=== PATIENT | female | born 1975 | race Caucasian/White ===

== ENCOUNTER 2024-10-28 16:49 | Emergency (ER) | payer BC, SELFPAY ==
[2024-10-28 16:48] VITALS: BP 126/68; PULSE 60; RESP 17; O2SAT 98
--- NOTE | 2024-10-28 17:58 | ED_ITS ---
HPI - General Adult General Chief complaint: Dental/Oral Stated complaint: dental pain Source: patient Mode of arrival: ambulatory Limitations: no limitations History of Present Illness HPI narrative: 48-year-old white female complains of dental pain right upper and right lower molars for several weeks. Unable to get into her primary care providers in her dentist. Pain in right side of her face and right ear. Denies any other symptoms. No nausea or vomiting she says she has a hard time swallowing pills. Related Data Allergies Allergy/AdvReac Type Severity Reaction Status Date / Time amoxicillin Allergy Unknown Unknown Verified 10/28/24 17:00 azithromycin Allergy Unknown Unknown Verified 10/28/24 17:00 cephalexin (From Keflex) Allergy Unknown Unknown Verified 10/28/24 17:00 cortisone Allergy Unknown Unknown Verified 10/28/24 17:00 doxycycline Allergy Unknown Unknown Verified 10/28/24 17:00 erythromycin base Allergy Unknown Unknown Verified 10/28/24 17:00 magnesium Allergy Unknown Unknown Verified 10/28/24 17:00 montelukast (From Singulair) Allergy Unknown Unknown Verified 10/28/24 17:00 Penicillins Allergy Unknown Unknown Verified 10/28/24 17:00 promethazine (From Phenergan) Allergy Unknown Unknown Verified 10/28/24 17:00 tramadol Allergy Unknown Unknown Verified 10/28/24 17:00 Review of Systems Review of Systems: All systems reviewed & are unremarkable except as noted in HPI and below Exam Narrative: White female patient with no apparent distress.? Head normocephalic, atraumatic.? Eyes conjunctiva pink sclera nonicteric.? Extraocular movements are intact.? Ears externally normal.? TMs are normal. ?Oropharynx is clear with moist mucous membranes without exudates.? Right in teeth the back lower molars with tenderness on the right side lower molar and upper molar on the right side. No facial tenderness Neck is supple nontender no lymphadenopathy.? Back is nontender.? Lungs are clear.? Heart is regular rate and rhythm without murmurs gallops or rubs.? Skin is warm and dry without rashes or lesions.? Neurological patient is alert and oriented x4.? Motor and sensory grossly intact.? Gait is normal. Course Vital Signs Vital signs: Vital Signs Pulse Rate 60 10/28/24 16:48 Respiratory Rate 17 10/28/24 16:48 Blood Pressure 126/68 10/28/24 16:48 Pulse Oximetry 98 10/28/24 16:48 Oxygen Delivery Room Air 10/28/24 16:48 Pulse Rate 60 10/28/24 16:48 Respiratory Rate 17 10/28/24 16:48 Blood Pressure 126/68 10/28/24 16:48 Pulse Oximetry 98 10/28/24 16:48 Oxygen Delivery Room Air 10/28/24 16:48 Medical Decision Making MDM Narrative Medical decision making narrative: Patient placed in room: 3 ? History and physical was performed. Independent Historian: patient External Source Review: Differential Dx includes but not limited to: dental abscess dental caries Medications were Reviewed: Medications given: Toradol 30 IM Independently Interpreted by me: Shared decision Making: evaluation discussed all questions were asked and answered patient agreed with plan. Clindamycin 150 4 times a day Tylenol ibuprofen for pain. Vital Signs Vital Signs: Vital Signs Pulse Rate 60 10/28/24 16:48 Respiratory Rate 17 10/28/24 16:48 Blood Pressure 126/68 10/28/24 16:48 Pulse Oximetry 98 10/28/24 16:48 Oxygen Delivery Room Air 10/28/24 16:48 Pulse Rate 60 10/28/24 16:48 Respiratory Rate 17 10/28/24 16:48 Blood Pressure 126/68 10/28/24 16:48 Pulse Oximetry 98 10/28/24 16:48 Oxygen Delivery Room Air 10/28/24 16:48 Discharge Plan Discharge Clinical Impression: Toothache Patient Disposition: Home, Self-Care Condition: Stable Instructions: Antibiotic Form, Toothache (ED) Additional Instructions: ibuprofen 400 mg 3 times a day. Tylenol not more than 4000 mg per day as needed for pain. Follow-up with your primary care provider and Dentist. Clindamycin 150 mg every 6 hours 4 times a day for 10 days. Return if you get worse or develops any new symptoms. Patient Language: Indonesian Prescriptions: New clindamycin HCl 150 mg capsule 150 mg PO Q6H 10 Days Qty: 40 0RF Follow-up/Referrals: Nay,Kenedy [Other] Stand Alone Forms: Work/School Release IP
[2024-10-28] MEDS: KETOROLAC 30 MG/ML VIAL (*BKC) IM (18:14)
[2024-10-28 18:33] VITALS: BP 115/81; PULSE 58; RESP 16; TEMP 36.3; O2SAT 100
== END 2024-10-28 18:33 | disposition home or self-care (01) ==
PROVIDERS: Emergency Provider Emergency Medicine
DX: K08.89 Other specified disorders of teeth and supporting structures (principal)
CPT/HCPCS: 96372; 99283; J1885

== ENCOUNTER 2025-02-03 14:49 | Emergency (ER) | payer BC, SELFPAY ==
--- NOTE | ~2025-02-03 | CT_ITS ---
EXAMINATION: CT cervical spine wo con DATE: 02/03/2025 15:51 INDICATION: Right-sided cervical pain post injury TECHNIQUE: Computed tomography (CT) of the cervical spine was performed without intravenous contrast. Automated exposure control and iterative reconstruction technique were employed. The dose-length pro duct was 323.89 mGy-cm. COMPARISON: None FINDINGS: Focal mild reversal of the normal cervical lordosis which could be positional or due to muscle spasm. No spondylolisthesis or facet subluxation. Mild osteoarthritis at the atlantoaxial articulation. Rush tebral body and disc heights are normal. Mild disc bulge at C3-C4 resulting in mild central canal ibeth nosis at this level. There is multilevel mild cervical facet and uncovertebral osteoarthritis. There is moderate facet osteoarthritis on the right at C2-C3 and bilaterally at C7-T1 with mild facet osteo arthritis at many of the remaining cervical levels. No neural foraminal stenosis. Cervical soft tissu es are unremarkable. IMPRESSION: 1. Mild reversal of the normal cervical lordosis which could be positional or due to muscle spasm. No other acute osseous abnormality. 2. Minimal cervical spondylosis. Reviewed, dictated and finalized at location A. IMPRESSION: 1. Mild reversal of the normal cervical lordosis which could be positional or d ue to muscle spasm. No other acute osseous abnormality. 2. Minimal cervical spondylosis.
--- NOTE | ~2025-02-03 | CT_ITS ---
EXAMINATION: CT thoracic spine wo con DATE: 02/03/2025 15:51 INDICATION: Right-sided back pain post injury TECHNIQUE: Computed tomography (CT) of the thoracic spine was performed without intravenous contrast. Automated exposure control and iterative reconstruction technique were employed. The dose-length pro duct was 1368.49 mGy-cm. COMPARISON: None FINDINGS: Alignment is normal. Vertebral body heights are normal. No fractures. Multilevel mild disc height los s with small degenerative endplate osteophytes from T3-T4 through T10-T11. No evident central canal s tenosis. Severe facet osteoarthritis on the left at T9-T10 and T10-T11. Mild facet osteoarthritis the majority the remaining levels throughout the thoracic spine. No thoracic neural foraminal stenosis. 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 Paravertebral soft tissues are otherwise unremarkable. Respiratory motion mild atelecta sis at the visualized portions of the bilateral lung bases. Thoracic aorta is normal in caliber. IMPRESSION: 1. Mild thoracic spondylosis. No acute osseous abnormality. Reviewed, dictated and finalized at location A.
[2025-02-03 14:50] VITALS: BP 120/65; PULSE 65; RESP 16; TEMP 36.3; O2SAT 99
--- NOTE | 2025-02-03 14:50 | ED.BACK ---
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 She has pain in the cervical neck region to the right of her neck. The pain shoots down her back to the upper thoracic region. It is a shooting pain. It is a sharp pain. No head injury per se. Only neck injury. No LOC. MD elicited complaint: back pain ( right neck and thoracic spine) and back injury ( right neck and thoracic spine) Pertinent past history: recent trauma Onset (ago): hour(s) ( 2) Timing: constant Severity: moderate Pain scale (0-10): 5 Similar Symptoms Previously: No Quality: sharp and tingling Location: thoracic spine ( cervical spine right neck) Radiation: neck ( thoracic spine) Exacerbating factors: movement Relieving factors: immobilization Context: other ( patient has right neck and cervical and thoracic pain after a box fell on her neck area in the past few hours at work) Associated symptoms: denies other symptoms Treatments prior to arrival: other ( none) Work related injury: Yes Related Data Allergies Allergy/AdvReac Type Severity Reaction Status Date / Time amoxicillin Allergy Unknown Unknown Verified 02/03/25 14:54 azithromycin Allergy Unknown Unknown Verified 02/03/25 14:54 cephalexin (From Keflex) Allergy Unknown Unknown Verified 02/03/25 14:54 cortisone Allergy Unknown Unknown Verified 02/03/25 14:54 doxycycline Allergy Unknown Unknown Verified 02/03/25 14:54 erythromycin base Allergy Unknown Unknown Verified 02/03/25 14:54 magnesium Allergy Unknown Unknown Verified 02/03/25 14:54 montelukast (From Singulair) Allergy Unknown Unknown Verified 02/03/25 14:54 Penicillins Allergy Unknown Unknown Verified 02/03/25 14:54 promethazine (From Phenergan) Allergy Unknown Unknown Verified 02/03/25 14:54 tramadol Allergy Unknown Unknown Verified 02/03/25 14:54 Review of Systems Review of Systems: All systems reviewed & are unremarkable except as noted in HPI and below Constitutional: Constitutional: Reports no additional constitutional complaints Eyes: Eyes: Reports no additional eye complaints ENT: Reports system reviewed and no additional complaints, except as documented Cardiovascular: Cardiovascular: Reports no additional cardiovascular complaints Respiratory: Respiratory: Reports no additional respiratory complaints Gastrointestinal: Gastrointestinal: Reports no additional gastrointestinal complaints Genitourinary: Genitourinary: Reports no additional female genitourinary complaints Musculoskeletal: Musculoskeletal: Reports no additional musculoskeletal complaints Integumentary/Breasts: Skin/Breast: Reports system reviewed and no additional complaints, except as docu Neurologic: Reports system reviewed and no additional complaints, except as documented Psychiatric: Psychiatric: Reports no additional psychiatric complaints Endocrine: Endocrine: Reports no additional endocrine complaints Hematologic/Lymphatic: Hematologic/Lymphatic: Reports no additional hematologic/lymphatic complaints Allergic/Immunologic: Allergic/Immunologic: Reports no additional allergic/immunologic complaints Exam Const: General: healthy appearing Nutritional Appearance: well nourished Orientation/consciousness: patient oriented x3 HENMT: Head: normal to inspection Ears: external ears normal Face/Nose/Sinus: Normal external nose present Eyes: Conjunctivae: conjunctivae normal Pupils: Equal, round and reactive pupils present EOM: EOMs intact bilaterally Neck: Neck: normal visual inspection Chest: Chest palpation & inspection: normal inspection of the chest Resp: Effort & Inspection: normal respiratory effort and not labored Auscultation: clear to auscultation bilaterally and no crackles Cardio: Rate: regular rate Rhythm: regular rhythm Heart sounds: no murmurs GI: Inspection: non-distended GI Palp: Yes Soft to palpation and No Tenderness to palpation present (GI) Auscultation: normal bowel sounds : General: Yes bladder normal to palpation Back/Spine/Pelvis: Back: no CVA tenderness Other: tender cervical spine more so to the right of the neck and down to the upper thoracic spine midline and to the right of the spine and in the paraspinal muscle area Skin: General skin exam: normal color Rashes: no rashes Wounds: no wounds Neuro: General: patient oriented x3 Cranial nerves: Yes Nystagmus not present Speech: normal speech Gait exam (Neuro): Normal gait present Other: no focal neurological deficits Extrem: General: normal to inspection Psych: Mental Status: mental status grossly normal Affect: normal affect Attitude: cooperative Course Vital Signs Vital signs: Vital Signs Temperature 36.3 C L 02/03/25 14:50 Pulse Rate 65 02/03/25 14:50 Respiratory Rate 16 02/03/25 14:50 Blood Pressure 120/65 02/03/25 14:50 Pulse Oximetry 99 02/03/25 14:50 Temperature 36.3 C L 02/03/25 14:50 Pulse Rate 65 02/03/25 14:50 Respiratory Rate 16 02/03/25 14:50 Blood Pressure 120/65 02/03/25 14:50 Pulse Oximetry 99 02/03/25 14:50 MDM - Back Pain/Injury MDM Narrative Medical decision making narrative: patient is a 49-year-old female with a right neck injury and upper back injury at work a few hours ago. A box fell on her neck. No head injury. We will get CT scans of the area of the cervical spine and thoracic spine. We will give her Toradol. Imaging Data Attestation: I personally reviewed and interpreted this imaging study as follows: Radiologist's impression: CT scan of the cervical spine shows muscle spasms but no acute other findings CT scan of the thoracic spine is negative for acute findings Discharge Plan Discharge Clinical Impression: Acute cervical myofascial strain, Acute thoracic myofascial strain Patient Disposition: Home, Self-Care Condition: Stable Instructions: Cervical Strain (DC), Thoracic Back Strain (ED) Patient Language: Saudi Arabian Prescriptions: New orphenadrine citrate 100 mg tablet extended release 100 mg PO BID PRN (Reason: pain) Qty: 20 0RF No Action clindamycin HCl 150 mg capsule 150 mg PO Q6H 10 Days Qty: 40 0RF Follow-up/Referrals: UNKNOWN,DOCTOR [Non-Staff] - Time of Disposition: 16:23
--- OUTSIDE RECORDS SUMMARY | 2025-02-03 14:51 | XMS_ITS | Encounter Summary ---
Author Organization [facility] Address [address] [place] [address] Care Team Providers Care Cigarette Making Machine Catcher Name Role Phone None, Provider Primary Care Provider Unavaila Mil Kilgore MD Unavailable Unavailbeba e José Miguel Blackwell MD Primary Care Provider [phone] Marcell Calderon MD Unavailable Unavailable Francisco Luz MD Unavailable [phone] Katie Corbin NP Unavailable [phone] Donald Gupta PA-C Primary Care Provider [phone] Encounter Details Date Type Department Care Team (Late st Contact Info) Description 12/30/[address] [facility] Conversion [address] [place], [place] [id number] , Generic Conversion, Social History Tobacco Use Types Packs/Day Years Used Date Smoking Tobacco: Never Assessed Comments Unknown Sex and Gender Information Value Date Recorded Sex Assigned at Not on file Legal Sex Female 10:30 PM CDT Gender Identity Not on file Sexual Orientation Not on file documented as of this encounter Plan of Treatment Not on file documented as of this encounter Visit Diagnoses Not on filedocumented in this encounter Care Teams Cigarette Making Machine Catcher Relationship Specialty Start Date End Date None, ProviderMD PCP - General 02/18/17 02/19/17 José Miguel Blackwell MD PCP - General FAMILY PRACTICE 02/20/17 12/05/19 Donald Gupta PA-C [address] [place] [address] [place] [address] PCP - General PHYSICIAN IMAGER 12/06/19 Mil Daniel MD [place] Senior Construction Project Manager CARDIOVASCULAR DISEASE 02/18/17 Marcell Calderon MD Senior Construction Project Manager CLINICAL CARDIAC ELECTROPHYSIOLOGY 06/22/17 Francisco Luz MD [address] [place] [phone] CARDIOVASCULAR DISEASE 12/28/17 Katie Corbin NP [address] [place] [address] NURSE PRACTITIONER 04/12/19 2 documented as of this encounter
--- OUTSIDE RECORDS SUMMARY | 2025-02-03 14:51 | XMS_ITS | Encounter Summary ---
Author Organization [facility] Address [address] [place] [address] Care Team Providers Care Kitchen Designer Name Role Phone Mil Daniel MD Unavailable UnavailJosé Miguel Palacio MD Primary Care Provider [phone] Marcell Calderon MD Unavailable Unavailable rFancisco Luz MD Unavailable [phone] Katie Corbin NP Unavailable [phone] Donald Gupta PA-C Primary Care Provider [phone] Encounter Details Date Type Department Care Team (Late st Contact Info) Description 02/20/2017 Abstract [facility] [address] [place] [id number] Mil Daniel MD Social History Tobacco Use Types Packs/Day Years Used Date Smoking Tobacco: Never Smokeless Tobacco: Never Tobacco Cessation:Counseling Given: Not Answered Alcohol Use Standard Drinks/Week Comments No 0 (1 standard drink = 0.6 oz pur e alcohol) Comments Unknown Sex and Gender Information Value Date Recorded Sex Assigned at Not on file Legal Sex Female 10:30 PM CDT Gender Identity Not on file Sexual Orientation Not on file Occupation Industry Job Start Date Job End Date 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 [employer] Not on file Not on ellis e Not on file documented as of this encounter Plan of Treatment Not on file documented as of this encounter Visit Diagnoses Not on filedocumented in this encounter Care Teams Kitchen Designer Relationship Specialty Start Date End Date José Miguel Blackwell MD PCP - General FAMILY PRACTICE 02/20/17 12/05/19 Donald Gupta PA-C [address] [place] [address] [place] [address] PCP - General PHYSICIAN DIRECTOR OF STUDENT AID 12/06/19 Mil Daniel MD [place] Product Technology Scientist CARDIOVASCULAR DISEASE 02/18/17 Marcell Calderon MD Product Technology Scientist CLINICAL CARDIAC ELECTROPHYSIOLOGY 06/22/17 Francisco Luz MD [address] [place] [phone] CARDIOVASCULAR DISEASE 12/28/17 Katie Corbin NP [address] [place] [address] NURSE PRACTITIONER 04/12/19 12/09/20 documented as of this encounter
--- OUTSIDE RECORDS SUMMARY | 2025-02-03 14:51 | XMS_ITS | Encounter Summary ---
Author Organization [facility] Address [address] [place] [address] Care Team Providers Care Industrial Yard Brake Coupler Name Role Phone None, Provider Primary Care Provider Unavaila Mil Kilgore MD Unavailable Unavailbeba e José Miguel Blackwell MD Primary Care Provider [phone] Marcell Calderon MD Unavailable Unavailable Francisco Luz MD Unavailable [phone] Katie Corbin NP Unavailable [phone] Donald Gupta PA-C Primary Care Provider [phone] Encounter Details Date Type Department Care Team (Late st Contact Info) Description 01/29/[address] [facility] Conversion [address] [place], [place] [address] , Generic Conversion, Social History Tobacco Use [...] on filedocumented in this encounter Care Teams Industrial Yard Brake Coupler Relationship Specialty Start Date End Date None, ProviderMD PCP - General 02/18/17 02/19/17 José Miguel Blackwell MD PCP - General FAMILY PRACTICE 02/20/17 12/05/19 Donald Gupta PA-C [address] [place] [address] [place] [address] PCP - General PHYSICIAN PROCESS MACHINE OPERATOR 12/06/19 Mil Daniel MD [place] Mat Machine Tender CARDIOVASCULAR DISEASE 02/18/17 Marcell Calderon MD Mat Machine Tender CLINICAL CARDIAC ELECTROPHYSIOLOGY 06/22/17 Francisco Luz MD [address] [place] [phone] CARDIOVASCULAR DISEASE 12/28/17 Katie Corbin NP [address] [place] [address] NURSE PRACTITIONER 04/12/19 2 documented as of this encounter
--- OUTSIDE RECORDS SUMMARY | 2025-02-03 14:51 | XMS_ITS | Encounter Summary ---
Author Organization [facility] Address [address] [place] [address] Care Team Providers Care General Medical Practitioner Name Role Phone Mil Daniel MD Unavailable UnavailJosé Miguel Palacio MD Primary Care Provider [phone] Marcell Calderon MD Unavailable Unavailable Francisco Luz MD Unavailable [phone] Katie Corbin NP Unavailable [phone] Donald Gupta PA-C Primary Care Provider [phone] Encounter Details Date Type Department Care Team (Late st Contact Info) Description 04/13/2019 Abstract [facility] [address] [place] [address] Abstract, Doc [facility] Social History Tobacco Use Types Packs/Day Years Used Date Smoking Tobacco: Never Smokeless Tobacco: Never Alcohol Use Standard Drinks/Week Comments No 0 (1 standard drink = 0.6 oz pur e alcohol) Comments Unknown Sex and Gender Information Value Date Recorded Sex Assigned at Not on file Legal Sex Female 10:30 PM CDT Gender Identity Not on file Sexual Orientation Not on file Occupation Industry Job Start Date 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 End Date 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 Not on file Not on file documented as of this encounter Plan of Treatment Not on file documented as of this encounter Visit Diagnoses Not on filedocumented in this encounter Care Teams General Medical Practitioner Relationship Specialty Start Date End Date José Miguel Blackwell MD PCP - General FAMILY PRACTICE 02/20/17 12/05/19 Donald Gupta PA-C [address] [place] [address] PCP - General PHYSICIAN INVESTMENT BANKING MANAGER 12/06/19 Mil Daniel MD [place] Pyrometer Operator CARDIOVASCULAR DISEASE 02/18/17 Marcell Calderon MD Pyrometer Operator CLINICAL CARDIAC ELECTROPHYSIOLOGY 06/22/17 Francisco Luz MD [address] [place] [address] CARDIOVASCULAR DISEASE 12/28/17 Katie Corbin NP [address] [place] [address] NURSE PRACTITIONER 04/12/19 12/09/20 documented as of this encounter
--- OUTSIDE RECORDS SUMMARY | 2025-02-03 14:51 | XMS_ITS | Clinical Summary ---
Author Organization [facility] Address [address] [place] [address] Care Team Providers Care Tub Wash Operator Name Role Phone Mil Daniel MD Unavailable UnavailMarcell Dahl MD Unavailable Unavailable Francisco Luz MD Unavailable Donald Gupta PA-C Primary Care Provider [phone] Allergies Active Allergy Reactions Criticality Noted Date Comments Amoxicillin Anaphylaxis High 02/20/2017 Azithromycin Anaphylaxis High 02/20/2017 Cortisone Other (see comment) 02/20/2017 swelling Doxycycline Anaphylaxis High 02/20/2017 Erythromycin Anaphylaxis High 02/20/2017 Fludrocortisone Other (see comment) 01/12/2020 At high dose peripheral edema Levothyroxine GI Upset 03/03/2023 Magnesium Sulfate Other (see comment) 0 Blindness Penicillins Anaphylaxis High 02/20/2017 Prednisone Anaphylaxis High 03/03/2023 Promethazine Anaphylaxis High 02/20/2017 Medications EPINEPHrine 0.3 MG/0.3ML injection Inject 0.3 mLs (0.3 mg total) into the muscle as needed for Anaphylaxis . Active albuterol sulfate HFA 108 (90 Base) MCG/ACT inhaler Inhale 1 puff into the lungs every 6 (six) hours as needed. 03/23/2020 Active thyroid (ARMOUR) 30 MG OR tablet Take 1 tablet (30 mg total) by mouth daily. Active Active Problems Problem Noted Date Diagnosed Date PAC (premature atrial contraction) 12/27/2020 Chest pain 04/22/2019 Postural dizziness with near syncope 11/30/2018 Family history of heart disease 06/29/2018 LOC (loss of consciousness) ([facility]) Hypothyroidism, acquired 05/02/2015 Overview (01/12/2020): Date Onset: 05/02/2015 Metabolic syndrome 05/02/2015 Overview (01/12/2020): Date Onset: 05/02/2015 Date Onset: 05/02/2015 Polycystic ovaries 05/02/2015 Overview (01/12/2020): Date Onset: 05/02/2015 Vitamin D deficiency 05/02/2015 Overview (01/12/2020): Date Onset: 05/02/2015 Dysmenorrhea 04/18/2015 Overview (01/12/2020): Date Onset: 04/18/2015 Date Onset: 04/18/2015 Dyspareunia 04/18/2015 Overview (01/12/2020): Date Onset: 04/18/2015 Irregular menses 04/18/2015 Overview (01/12/2020): Date Onset: 04/18/2015 Menorrhagia 04/18/2015 Overview (01/12/2020): Date Onset: 04/18/2015 Metrorrhagia 04/18/2015 Overview (01/12/2020): Date Onset: 04/18/2015 Obesity 04/18/2015 Overview (01/12/2020): Date Onset: 04/18/2015 Premenstrual dysphoric disorder 04/18/2015 Overview (01/12/2020): Date Onset: 04/18/2015 Orthostatic hypotension Syncope Sinus bradycardia Dizziness Family History Medical History Relation Comments Colon Cancer Father Heart Attack Father Heart Disease Father AICD Accidental Mother motorcycle acci dent Relation Status Comments Brother Alive Father Alive Maternal Grandfather Maternal Grandmother Mother (Age 61) Paternal Grandfather Paternal Grandmother Sister Alive Social History Tobacco Use Types Packs/Day Years [...] Job Start Date Job End Date 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 [employer] Not 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 Not on ellis e Not on file Last Filed Vital Signs Vital Sign Reading Time Taken Comments Blood Pressure 123/84 06/18/2023 12:31 PM CDT Pulse 76 03/03/2023 9:56 AM CDT regul ar Temperature - - Respiratory Rate 16 06/18/2023 12:27 PM CDT Oxygen Saturation 99% 06/18/2023 12:27 PM CDT Inhaled Oxygen Concentration - - Weight 95.3 kg (210 lb) 06/18/2023 12:27 PM CDT Height 165.1 cm (5' 5 ) 06/18/2023 12:27 PM CDT Body Mass Index 34.95 06/18/2023 12:27 PM CDT Plan of Treatment Health Maintenance Due Date Last Done Comments Colorectal Cancer Screening Colonoscopy (10 Years) 1974 Annual Physical 1977 Hepatitis C 1992 DTaP, Tdap and Td Vaccines ( 1 - Tdap) 1993 04/06/1980 Hepatitis B Vaccines (1 of 3 - 19+ 3-dose series) 1993 Cervical Cancer Screening Pa p with HPV Testing (Age 30 to 64) Every 5 Years 2004 Mammogram Screening 2014 Cervical Cancer Screening Pa p Smear (Age 30 to 64) Every 3 Years 04/18/2018 04/18/2015 Cervical Cancer Screening with HPV 04/18/2018 COVID-19 Vaccine ( - 2023-2 5 season) 2024 Zoster Vaccines (1 of 2) 2024 Meningococcal B Vaccine Aged Out No l onger eligible based on patient's age to complete this topic Meningococcal Vaccine Aged Out No rivera pepper eligible based on patient's age to complete this topic Pneumococcal Vaccine: Pediat rics (0 to 5 Years) and At-Risk Patients (6 to 64 Years) Aged Out No longer eligi ble based on patient's age to complete this topic RSV Immunizations Under 20 Months Aged Out No longer eligible based on patient's age to complete this topic Procedures Procedure Name Priority Date/Time Associated Diagnosis Comments THINPREP IMAGING PAP REFLEX HPV MRNA E6/E7 Routine 04/18/2015 12:28 PM CDT from Last 3 Months or Most Recently Relevant to Health Maintenance Results * THINPREP IMAGING PAP REFLEX HPV MRNA E6/E7 (04/18/2015 12:28 PM CDT) REFLEX ADDED no [facility] P TO EPIC CONVERSION Comment: THIS TEST WAS PERFORMED AT [facility] [address], [place] [address] 04/18/2015 12:2 8 PM CDT 04/18/2015 12:28 PM CDT Narrative [facility] TO EPIC CONVERSION - 04/24/2015 11:05 AM CDT This lab was migrated from [facility] and may be missing annotations or result text, please check the Media tab for the most complete results. Juan Manuel Warren MD PATHOLOGY/CYTOLOGY ORDER PATRICIA Final Result [facility] TO EPIC CONVERSION from Last 3 Months or Most Recently Relevant to Health Maintenance Insurance RANGEL Care Teams Tub Wash Operator Relationship Specialty Start Date End Date Donald Gupta PA-C [address] [place] [place] [address] PCP - General PHYSICIAN DRAPERY INSPECTOR 12/06/19 Mil Daniel MD [place] Dishwashing Machine Repairer CARDIOVASCULAR DISEASE 02/18/17 Marcell Calderon MD [place] Dishwashing Machine Repairer CLINICAL CARDIAC ELECTROPHYSIOLOGY 06/22/17 Francisco Luz MD [address] [place] [address] CARDIOVASCULAR DISEASE 12/28/17
--- OUTSIDE RECORDS SUMMARY | 2025-02-03 14:51 | XMS_ITS | Encounter Summary ---
Author Organization [facility] Address [address] [place] [address] Care Team Providers Care Accreditation Coordinator Name Role Phone None, Provider Primary Care Provider Unavaila Mil Kilgore MD Unavailable Unavailbeba e José Miguel Blackwell MD Primary Care Provider [phone] Marcell Calderon MD Unavailable Unavailable Francisco Luz MD Unavailable [phone] Katie Cobrin NP Unavailable [phone] Donald Gupta PA-C Primary Care Provider [phone] Encounter Details Date Type Department Care Team (Late st Contact Info) Description 01/26/[address] [facility] Conversion [address] [place], [place] [address] , Generic Conversion, Social History Tobacco Use [...] on filedocumented in this encounter Care Teams Accreditation Coordinator Relationship Specialty Start Date End Date None, ProviderMD PCP - General 02/18/17 02/19/17 José Miguel Blackwell MD PCP - General FAMILY PRACTICE 02/20/17 12/05/19 Donald Gupta PA-C [address] [place] [address] [place] [address] PCP - General PHYSICIAN PAROLE BOARD MEMBER 12/06/19 Mil Daniel MD [place] [employer] Engineering Teacher CARDIOVASCULAR DISEASE 02/18/17 Marcell Calderon MD Plastics Engineering Teacher CLINICAL CARDIAC ELECTROPHYSIOLOGY 06/22/17 Francisco Luz MD [address] [place] [address] CARDIOVASCULAR DISEASE 12/28/17 Katie Corbin NP [address] [place] [address] NURSE PRACTITIONER 04/12/19 2 documented as of this encounter
[2025-02-03] MEDS: KETOROLAC (*BKC) 60 MG/2 ML VIAL IM (15:11)
--- OUTSIDE RECORDS SUMMARY | 2025-02-03 15:35 | XMS_ITS | Encounter Summary ---
Author Organization [facility] Address [address] [place] [address] Care Team Providers Care Cured Meats Supervisor Name Role Phone None, Provider Primary Care Provider Unavaila Mil Kilgore MD Unavailable Unavailbeba e José Miguel Blackwell MD Primary Care Provider [phone] Marcell Calderon MD Unavailable Unavailable Francisco Luz MD Unavailable [phone] Katie Corbin NP Unavailable [phone] Donald Gupta PA-C Primary Care Provider [phone] Encounter Details Date Type Department Care Team (Late st Contact Info) Description 12/30/[address] [facility] Conversion [address] [place], [place] [address] , Generic Conversion, Social History Tobacco Use [...] on filedocumented in this encounter Care Teams Cured Meats Supervisor Relationship Specialty Start Date End Date None, ProviderMD PCP - General 02/18/17 02/19/17 José Miguel Blackwell MD PCP - General FAMILY PRACTICE 02/20/17 12/05/19 Donald Gupta PA-C [address] [place] [address] [place] [address] PCP - General PHYSICIAN RAYON WINDER 12/06/19 Mil Daniel MD [place] Life Insurance Specialist CARDIOVASCULAR DISEASE 02/18/17 Marcell Calderon MD Life Insurance Specialist CLINICAL CARDIAC ELECTROPHYSIOLOGY 06/22/17 Francisco Luz MD [address] [place] [address] CARDIOVASCULAR DISEASE 12/28/17 Katie Corbin NP [address] [place] [address] NURSE PRACTITIONER 04/12/19 2 documented as of this encounter
--- OUTSIDE RECORDS SUMMARY | 2025-02-03 15:35 | XMS_ITS | Encounter Summary ---
Author Organization [facility] Address [address] [place] [address] Care Team Providers Care Toy Trains And Accessories Salesperson Name Role Phone None, Provider Primary Care Provider Unavaila Mil Kilgore MD Unavailable Unavailbeba e José Miguel Blackwell MD Primary Care Provider [phone] Marcell Calderon MD Unavailable Unavailable Francisco Luz MD Unavailable [phone] Katie Corbin NP Unavailable [phone] Donald Gupta PA-C Primary Care Provider [phone] Encounter Details Date Type Department Care Team (Late st Contact Info) Description 01/26/[address] [facility] Conversion [address] [place], [place] [address] , Generic Conversion, Social History Tobacco Use [...] on filedocumented in this encounter Care Teams Toy Trains And Accessories Salesperson Relationship Specialty Start Date End Date None, ProviderMD PCP - General 02/18/17 02/19/17 José Miguel Blackwell MD PCP - General FAMILY PRACTICE 02/20/17 12/05/19 Donald Gupta PA-C [address] [place] [address] [place] [address] PCP - General PHYSICIAN TANNING CONSULTANT 12/06/19 Mil Daniel MD [place] Webbing Tacker CARDIOVASCULAR DISEASE 02/18/17 Marcell Calderon MD Webbing Tacker CLINICAL CARDIAC ELECTROPHYSIOLOGY 06/22/17 Francisco Luz MD [address] [place] [address] CARDIOVASCULAR DISEASE 12/28/17 Katie Corbin NP [address] [place] [address] NURSE PRACTITIONER 04/12/19 2 documented as of this encounter
--- OUTSIDE RECORDS SUMMARY | 2025-02-03 15:35 | XMS_ITS | Encounter Summary ---
Author Organization [facility] Address [address] [place] [address] Care Team Providers Care It Architect Name Role Phone None, Provider Primary Care Provider Unavaila Mil Kilgore MD Unavailable Unavailbeba e José Miguel Blackwell MD Primary Care Provider [phone] Marcell Calderon MD Unavailable Unavailable Francisco Luz MD Unavailable [phone] Katie Corbin NP Unavailable [phone] Donald Gupta PA-C Primary Care Provider [phone] Encounter Details Date Type Department Care Team (Late st Contact Info) Description 01/29/[address] [facility] Conversion [address] [place], [place] [address] , Generic Conversion, Social History Tobacco Use [...] on filedocumented in this encounter Care Teams It Architect Relationship Specialty Start Date End Date None, ProviderMD PCP - General 02/18/17 02/19/17 José Miguel Blackwell MD PCP - General FAMILY PRACTICE 02/20/17 12/05/19 Donald Gupta PA-C [address] [place] [address] [place] [address] PCP - General PHYSICIAN TELE RN 12/06/19 Mil Daniel MD [place] Code Enforcement Supervisor CARDIOVASCULAR DISEASE 02/18/17 Marcell Calderon MD Code Enforcement Supervisor CLINICAL CARDIAC ELECTROPHYSIOLOGY 06/22/17 Francisco Luz MD [address] [place] [address] CARDIOVASCULAR DISEASE 12/28/17 Katie Corbin NP [address] [place] [address] NURSE PRACTITIONER 04/12/19 2 documented as of this encounter
--- OUTSIDE RECORDS SUMMARY | 2025-02-03 15:35 | XMS_ITS | Encounter Summary ---
Author Organization [facility] Address [address] [place] [address] Care Team Providers Care Junior Loan Processor Name Role Phone Mil Daniel MD Unavailable UnavailJosé Miguel Palacio MD Primary Care Provider [phone] Marcell Calderon MD Unavailable Unavailable Francisco Luz MD Unavailable [phone] Katie Corbin NP Unavailable [phone] Donald Gupta PA-C Primary Care Provider [phone] Encounter Details Date Type Department Care Team (Late st Contact Info) Description 02/20/2017 Abstract [facility] [address] [place] [phone] Mil Daniel MD Social History Tobacco Use [...] Job 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 Not on ellis e Not on file documented as of this encounter Plan of Treatment Not on file documented as of this encounter Visit Diagnoses Not on filedocumented in this encounter Care Teams Junior Loan Processor Relationship Specialty Start Date End Date José Miguel Blackwell MD PCP - General FAMILY PRACTICE 02/20/17 12/05/19 Donald Gupta PA-C [address] [place] [address] [place] [address] PCP - General PHYSICIAN CORE CARRIER 12/06/19 Mil Daniel MD [place] Adjunct Philosophy Faculty CARDIOVASCULAR DISEASE 02/18/17 Marcell Calderon MD Adjunct Philosophy Faculty CLINICAL CARDIAC ELECTROPHYSIOLOGY 06/22/17 Francisco Luz MD [address] [place] [address] CARDIOVASCULAR DISEASE 12/28/17 Katie Corbin NP [address] [place] [address] NURSE PRACTITIONER 04/12/19 12/09/20 documented as of this encounter
--- OUTSIDE RECORDS SUMMARY | 2025-02-03 15:35 | XMS_ITS | Encounter Summary ---
Author Organization [facility] Address [address] [place] [address] Care Team Providers Care Cloud Consultant Name Role Phone Mil Daniel MD Unavailable UnavailJosé Miguel Palacio MD Primary Care Provider [phone] Marcell Calderon MD Unavailable Unavailable Francisco Luz MD Unavailable [phone] Katie Corbin NP Unavailable [phone] Donald Gupta PA-C Primary Care Provider [phone] Encounter Details Date Type Department Care Team (Late st Contact Info) Description 04/13/2019 Abstract [facility] [address] [place] [address] Abstract, Doc [facility] Social History Tobacco Use [...] 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 Not on file Not on file documented as of this encounter Plan of Treatment Not on file documented as of this encounter Visit Diagnoses Not on filedocumented in this encounter Care Teams Cloud Consultant Relationship Specialty Start Date End Date José Miguel Blackwell MD PCP - General FAMILY PRACTICE 02/20/17 12/05/19 Donald Gupta PA-C [address] [place] [address] PCP - General PHYSICIAN CAREER DEVELOPMENT CONSULTANT 12/06/19 Mil Daniel MD [place] [employer] CARDIOVASCULAR DISEASE 02/18/17 Marcell Calderon MD Refrigerator Crater CLINICAL CARDIAC ELECTROPHYSIOLOGY 06/22/17 Francisco Luz MD [address] [place] [address] CARDIOVASCULAR DISEASE 12/28/17 Katie Corbin NP [address] [place] [address] NURSE PRACTITIONER 04/12/19 12/09/20 documented as of this encounter
--- OUTSIDE RECORDS SUMMARY | 2025-02-03 15:35 | XMS_ITS | Clinical Summary ---
Author Organization [facility] Address [address] [place] [address] Care Team Providers Care Tanning Consultant Name Role Phone Mil Daniel MD Unavailable UnavailMarcell Dahl MD Unavailable Unavailable Francisco Luz MD Unavailable [phone] Donald Gupta PA-C Primary Care Provider [phone] Allergies Active Allergy Reactions Criticality Noted Date [...] heart disease 06/29/2018 LOC (loss of consciousness) ([facility]) Hypothyroidism, acquired 05/02/2015 Overview (01/12/2020): Date Onset: [...] Job Start Date Job End Date 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 Juan Manuel Warren MD PATHOLOGY/CYTOLOGY ORDER PATRICIA Final Result [facility] TO EPIC CONVERSION from Last 3 Months or Most Recently Relevant to Health Maintenance Insurance RANGEL Care Teams Tanning Consultant Relationship Specialty Start Date End Date Donald Gupta PA-C [address] [place] [address] PCP - General PHYSICIAN SPECIAL EVENT ASSISTANT 12/06/19 Mil Daniel MD [place] Production Posting Clerk CARDIOVASCULAR DISEASE 02/18/17 Marcell Calderon MD EP Production Posting Clerk CLINICAL CARDIAC ELECTROPHYSIOLOGY 06/22/17 Francisco Luz MD [address] [place] [address] CARDIOVASCULAR DISEASE 12/28/17
[2025-02-03 16:23] VITALS: BP 127/55; PULSE 55; RESP 16; O2SAT 99
[2025-02-03 16:30] VITALS: BP 127/55; PULSE 55; RESP 16; TEMP 36.3; O2SAT 99
== END 2025-02-03 16:30 | disposition home or self-care (01) ==
PROVIDERS: Emergency Provider Emergency Medicine
DX: S16.1XXA Strain of muscle, fascia and tendon at neck level, initial encounter (principal); S29.012A Strain of muscle and tendon of back wall of thorax, initial encounter; W20.8XXA Other cause of strike by thrown, projected or falling object, initial encounter; Y99.0 Civilian activity done for income or pay
CPT/HCPCS: 72125; 72128; 96372; 99284; J1885

== ENCOUNTER 2025-02-04 19:33 | Emergency (ER) | payer OTHER, SELFPAY ==
[2025-02-04 19:40] VITALS: BP 134/79; PULSE 50; RESP 18; TEMP 36.8; O2SAT 100
--- NOTE | 2025-02-04 19:45 | ED_ITS ---
HPI - Extremity Injury (Upper) General Chief Complaint: Unspecified Stated Complaint: R side neck and Shoulder pain Time Seen by Provider: 02/04/25 19:45 Related Data Allergies Allergy/AdvReac Type Severity Reaction Status Date / Time amoxicillin Allergy Unknown Unknown Verified 02/03/25 14:54 azithromycin Allergy Unknown Unknown Verified 02/03/25 14:54 cephalexin (From Keflex) Allergy Unknown Unknown Verified 02/03/25 14:54 cortisone Allergy Unknown Unknown Verified 02/03/25 14:54 doxycycline Allergy Unknown Unknown Verified 02/03/25 14:54 erythromycin base Allergy Unknown Unknown Verified 02/03/25 14:54 magnesium Allergy Unknown Unknown Verified 02/03/25 14:54 montelukast (From Singulair) Allergy Unknown Unknown Verified 02/03/25 14:54 Penicillins Allergy Unknown Unknown Verified 02/03/25 14:54 promethazine (From Phenergan) Allergy Unknown Unknown Verified 02/03/25 14:54 tramadol Allergy Unknown Unknown Verified 02/03/25 14:54 Course Vital Signs Vital signs: Vital Signs Temperature 36.8 C 02/04/25 19:40 Pulse Rate 50 L 02/04/25 19:40 Respiratory Rate 18 02/04/25 19:40 Blood Pressure 134/79 02/04/25 19:40 Pulse Oximetry 100 02/04/25 19:40 Oxygen Delivery Room Air 02/04/25 19:40 Temperature 36.8 C 02/04/25 19:40 Pulse Rate 50 L 02/04/25 19:40 Respiratory Rate 18 02/04/25 19:40 Blood Pressure 134/79 02/04/25 19:40 Pulse Oximetry 100 02/04/25 19:40 Oxygen Delivery Room Air 02/04/25 19:40 Discharge Plan Discharge Patient Language: Divehi Prescriptions: No Action clindamycin HCl 150 mg capsule 150 mg PO Q6H 10 Days Qty: 40 0RF orphenadrine citrate 100 mg tablet extended release 100 mg PO BID PRN (Reason: pain) Qty: 20 0RF Follow-up/Referrals: UNKNOWN,DOCTOR [Primary Care Provider] -
--- NOTE | 2025-02-04 19:46 | PC.NURSE ---
PATIENT IS CURRENTLY SITTING ON THE SIDE OF THE STRETCHER. DENIES ANY NEEDS AT THIS TIME
--- NOTE | 2025-02-04 19:47 | ED_ITS ---
HPI - Neck Pain/Injury General Chief Complaint: Unspecified Stated Complaint: R side neck and Shoulder pain Time Seen by Provider: 02/04/25 19:45 Source: patient Mode of arrival: ambulatory Limitations: no limitations History of Present Illness HPI Narrative: 49-year-old female presented to the ED yesterday after a box fell on the right side of her neck. She was noted to have right-sided neck pain radiating down the spine. No bruising of the neck noted. The patient had CT of the neck and the thoracic spine which did not show any acute findings. CT of the C-spine did not show any fracture or dislocation. It revealed minimal cervical spondylosis with reversal of the normal cervical lordosis. The patient was discharged home on orphenadrine. The patient presents to the ED with -- ongoing right neck pain which extends to right suprascapular region. No motor or sensory deficit of the right upper extremity noted. she is able to move her right upper extremity. patient is left handed MD complaint: neck pain Onset (ago): day(s) ( Two days) Place: work Radiation: right shoulder Severity: moderate Quality: aching Duration: constant Relieving factors: immobilization Exacerbating factors: movement of extremity Context: direct blow Associated symptoms: none Treatments prior to arrival: other ( orphenadrine) Related Data Allergies Allergy/AdvReac Type Severity Reaction Status Date / Time amoxicillin Allergy Unknown Unknown Verified 02/03/25 14:54 azithromycin Allergy Unknown Unknown Verified 02/03/25 14:54 cephalexin (From Keflex) Allergy Unknown Unknown Verified 02/03/25 14:54 cortisone Allergy Unknown Unknown Verified 02/03/25 14:54 doxycycline Allergy Unknown Unknown Verified 02/03/25 14:54 erythromycin base Allergy Unknown Unknown Verified 02/03/25 14:54 magnesium Allergy Unknown Unknown Verified 02/03/25 14:54 montelukast (From Singulair) Allergy Unknown Unknown Verified 02/03/25 14:54 Penicillins Allergy Unknown Unknown Verified 02/03/25 14:54 promethazine (From Phenergan) Allergy Unknown Unknown Verified 02/03/25 14:54 tramadol Allergy Unknown Unknown Verified 02/03/25 14:54 Review of Systems Review of Systems: All systems reviewed & are unremarkable except as noted in HPI and below PMFSH Past Medical History Medical History Neck contusion Exam Narrative: vitals are stable. Pulse of 50. Const: General: no acute distress Nutritional Appearance: well nourished Orientation/consciousness: patient oriented x3 Limitations: no limitations HENMT: Head: normal to inspection Ears: external ears normal Face/Nose/Sinus: Normal external nose present Face and sinus: normal facial exam Mouth: Yes Normal oral and palatal mucosa present Throat: posterior oropharynx normal Eyes: Conjunctivae: conjunctivae normal Pupils: Equal, round and reactive pupils present EOM: EOMs intact bilaterally Direct Ophthalmoscopy: no photophobia Neck: Neck: normal visual inspection, no lymphadenopathy and no meningeal signs Other: No cervical spine tenderness noted. No bruising noted on the right side of the neck/ Suprascapular ridge no sensory or motor loss of the right upper extremity tenderness over the right side of the neck and suprascapular region. Chest: Chest palpation & inspection: normal inspection of the chest Resp: Effort & Inspection: normal respiratory effort Auscultation: clear to auscultation bilaterally Cardio: Rate: regular rate Rhythm: regular rhythm GI: GI Palp: Yes Soft to palpation Auscultation: normal bowel sounds Other: No tenderness/ rigidity /rebound Back/Spine/Pelvis: Back: no CVA tenderness Other: no spinal tenderness noted Of the cervical region. Skin: General skin exam: normal color Rashes: no rashes Wounds: no wounds Other: No bruising over the right side of the neck or suprascapular region. Neuro: General: patient oriented x3, moves all extremities, no meningeal signs and CN's II-XI intact bilaterally Cranial nerves: Yes Nystagmus not present Speech: normal speech Gait exam (Neuro): Normal gait present Extrem: General: normal to inspection and no clubbing, cyanosis or edema Psych: Mental Status: mental status grossly normal Affect: normal affect Attitude: cooperative Course Course Emergency Course: Neck Sprain Vital Signs Vital signs: Vital Signs Temperature 36.8 C 02/04/25 19:40 Pulse Rate 50 L 02/04/25 19:40 Respiratory Rate 18 02/04/25 19:40 Blood Pressure 134/79 02/04/25 19:40 Pulse Oximetry 100 02/04/25 19:40 Oxygen Delivery Room Air 02/04/25 19:40 Temperature 36.8 C 02/04/25 19:40 Pulse Rate 50 L 02/04/25 19:40 Respiratory Rate 18 02/04/25 19:40 Blood Pressure 134/79 02/04/25 19:40 Pulse Oximetry 100 02/04/25 19:40 Oxygen Delivery Room Air 02/04/25 19:40 MDM - Neck Pain/Injury MDM Narrative Medical decision making narrative: neck sprain Differential Diagnosis Differential diagnosis: Likely closed subluxation of cervical spine Medical Records Attestation: I reviewed the patient's medical records. Discharge Plan Discharge Clinical Impression: Acute neck sprain Qualifiers: Encounter type: subsequent encounter Qualified Code(s): S13.9XXD - Sprain of joints and ligaments of unspecified parts of neck, subsequent encounter Patient Disposition: Home, Self-Care Condition: Stable Instructions: Antibiotic Form, Cervical Sprain (ED) Patient Language: Upper Sorbian Prescriptions: New diclofenac sodium 50 mg tablet,delayed release (DR/EC) 50 mg PO Q12H PRN (Reason: pain) Qty: 20 0RF No Action clindamycin HCl 150 mg capsule 150 mg PO Q6H 10 Days Qty: 40 0RF orphenadrine citrate 100 mg tablet extended release 100 mg PO BID PRN (Reason: pain) Qty: 20 0RF Follow-up/Referrals: UNKNOWN,DOCTOR [Non-Staff] - Stand Alone Forms: Work/School Release IP Time of Disposition: 20:11
--- NOTE | 2025-02-04 19:55 | PC.NURSE ---
DR NOLAN AT THE BEDSIDE
[2025-02-04] MEDS: KETOROLAC 30 MG/ML VIAL (*BKC) IM (20:24)
[2025-02-04 20:39] VITALS: BP 130/81; PULSE 54; RESP 18; O2SAT 100
== END 2025-02-04 20:40 | disposition home or self-care (01) ==
PROVIDERS: Emergency Provider Internal Medicine Critical Care Medicine
DX: S13.9XXD Sprain of joints and ligaments of unspecified parts of neck, subsequent encounter (principal); W20.8XXD Other cause of strike by thrown, projected or falling object, subsequent encounter
CPT/HCPCS: 96372; 99283; J1885